=== PATIENT | male | born 1965 | race Caucasian/White ===

== ENCOUNTER 2017-06-30 11:17 | Emergency (ER) | payer SELFPAY ==
[~2017-06-30] VITALS: Ht 177.8 cm; Wt 100.0 kg
[2017-06-30 11:18] VITALS: BP 135/86; PULSE 69; RESP 18; TEMP 98.7; O2SAT 97
[2017-06-30] MEDS ORDERED: [UNRECOGNIZED DRUG - REMARK] (11:39)
[2017-06-30] MEDS ORDERED: TETANUS/DIPHTHERIA TOXOID ADULT 0.5 ML VIAL IM ONE (13:00)
--- NOTE | 2017-06-30 13:30 | PD ---
HPI . Right fourth digit injury Chief Complaint: Laceration/Skin Injury Time Seen by Provider: 11:51 Travel History International Travel<30 days: No Contact w/Intl Traveler<30days: No Traveled to known affect area: No History of Present Illness HPI 52-year-old male patient presents emergency department for evaluation of right fourth digit injury. Patient had lacerated his 4th digit horizontally proximal to the PIP joint on Jun 12. Patient states the laceration was down to the bone. He did not seek medical attention at that time. Patient performed wound care and the laceration is healed at this time. He has been wearing a self made finger splint that is a straight board taped on the hills aspect of the digit. The finger is neurovascularly intact. Finger to be fully extended but has limited range of motion with flexion. [facility] Social History Tobacco Use: No Allergies-Medications (Allergen,Severity, Reaction): Coded Allergies: No Known Allergies (Verified Allergy, Unknown, 06/30/17) Reported Meds & Prescriptions Reported Meds & Active Scripts Active Reported [Dilantin Substitute] Review of Systems Except as stated in HPI: all other systems reviewed are Neg Physical Exam Narrative GENERAL: Well-nourished, well-developed 52 year old male patient in no acute distress. Nontoxic appearing. SKIN: Focused skin assessment warm/dry. HEAD: Normocephalic. Atraumatic. EYES: No scleral icterus. No injection or drainage. NECK: Supple, trachea midline. No JVD or lymphadenopathy. CARDIOVASCULAR: Regular rate and rhythm without murmurs, gallops, or rubs. RESPIRATORY: Breath sounds equal bilaterally. No accessory muscle use. GASTROINTESTINAL: Abdomen soft, non-tender, nondistended. MUSCULOSKELETAL: PIP on the 4th digit of the left hand mildly edematous. Full range of motion with extension of the fourth digit on the left hand but limited range of motion with flexion. No obvious deformity, or ecchymosis. Data Data Last Documented VS Vital Signs Date Time Temp Pulse Resp B/P (MAP) Pulse Ox O2 Delivery O2 Flow Rate FiO2 06/30/17 11:18 98.7 69 18 135/86 (102) 97 Room Air Orders Orders Finger ([id number]) (06/30/17 12:43) Tetanus/Diphtheria Tox Adult (Tetanus/Di (06/30/17 13:00) MDM Medical Decision Making Medical Screen Exam Complete: Yes Emergency Medical Condition: Yes Differential Diagnosis Differential diagnoses include but not limited to fracture, septic joint, flexor tendon injury, stiff PIP joint secondary to splint Narrative Course 52-year-old male patient presents emergency department for evaluation of injury to the fourth digit on his left hand. 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 The laceration is completely healed at this time. The patient has limited range of motion with flexion. Dr. Beverly, hand surgeon on-call called about this case and she recommended x-ray of the finger and mandatory follow-up due to the patient's lack of insurance. X-ray of the fourth digit of the right hand ordered and pending. X-ray of the fourth digit of the right hand shows no foreign body or fracture. Patient will be discharged home with a mandatory referral to follow up with Dr. Beverly. Diagnosis Primary Impression: Finger joint stiff Qualified Codes: M25.641 - Stiffness of right hand, not elsewhere classified Referrals: Primary Care Physician Patient Instructions: Finger Laceration (ED), General Instructions Additional Instructions: Please return to emergency department if your symptoms return or worsen. Mandatory referral to follow up with hand surgeon, Dr. Beverly. Hospital will call you regarding this appointment. Practice range of motion with the fourth digit on the right hand. Discontinue use of the straight splint. Disposition: 01 DISCHARGE HOME Condition: Stable EmigdioDeepika denisechente DAVILA Jun 30, 2017 13:30
--- NOTE | 2017-06-30 14:37 | RADRPT ---
EXAM DATE/TIME: 06/30/2017 14:10 [facility] COMPARISON: No previous studies available for comparison. INDICATIONS : Laceration PIP fourth finger. MEDICAL HISTORY : None. SURGICAL HISTORY : None. ENCOUNTER: Initial ACUITY: 3 days PAIN SCORE: 10/10 LOCATION: Right 4th finger. FINDINGS: Soft tissue swelling at site of laceration, negative for fracture or radiopaque foreign body. CONCLUSION: Negative for fracture or foreign body. Deandre Dickerson MD FACR on June 30, 2017 at 14:34 Board Certified Radiologist. This report was verified electronically.
== END 2017-06-30 15:09 | disposition home or self-care (01) ==
LOC: NEPK 11:17
DX: M25.641 Stiffness of right hand, not elsewhere classified (principal); Z23 Encounter for immunization
CPT/HCPCS: 73140; 90471; 90714